=== PATIENT | female | born 1995 | race Caucasian/White ===

== ENCOUNTER → 2021-01-17 10:26 | Outpatient (CLI) | payer OTHER, SELFPAY ==
--- NOTE | 2021-01-17 10:30 | DI.US.S_ITS ---
PROCEDURE: US OB <= 14 WEEKS FETUS INDICATIONS: OB Dating OUTSIDE/PRIOR DATING DATA: Last menstrual period (LMP): Not available. LMP-based estimated date of delivery (BRET): Not available. First dating scan (date and location): 01/17/21. Estimated date of delivery (BRET) from first dating scan: 07/30/21. TECHNIQUE: Real-time scanning was performed of the fetus and maternal pelvic organs, with image documentation. Endovaginal scanning was also performed to better visualize the fetus and maternal ovaries. COMPARISON: None. FINDINGS: Embryo: Placenta appears anterior, heart rate is seen at the fetus measuring 144 beats per minute. Maternal cervical length is 5.3 cm. The BPD, head circumference and abdominal circumference measure 12 weeks 2 days, 12 weeks 3 days, and 12 weeks 0 days for gestational age. The com positive current gestational age is 12 weeks 2 days, +/-5 days. Measurement variability in dating: +/- 4 weeks by LMP, +/- 7 days by mean sac diameter (use before 6 weeks gestation if crown-rump length not able to be measured), +/- 5 days by crown-rump length (up to 8 weeks 6 days gestation), +/- 7 days by crown-rump length (up to 13 weeks 6 days gestation). Maternal organs: Ovaries appear normal considering gestational status. . IMPRESSION: 12 week 2 day gestational age, delivery date is projected to be centered on 07/30/21. Follow-up anatomic survey at approximately 20 weeks gestation is recommended. Dictated by: Kendrick Calzada M.D. on 01/17/2021 at 14:02 Approved by: Kendirck Calzada M.D. on 01/17/2021 at 14:04
[2021-01-17 12:18] LABS: Add Manual Diff / Slide Review NO; Basophils Absolute Auto 0 /uL (0-100); Basophils Percent Auto 0.3 % (0-2); Eosinophils Absolute Auto 100 /uL (0-450); Eosinophils Percent Auto 0.4 % (2-4); Hematocrit 39.7 % (36-46); Hemoglobin 13.9 g/dL (12.0-16.0); Lymphocytes Absolute Auto 3200 /uL (1100-4500); Lymphocytes Percent Auto 22.4 % (25-40); Mean Corpuscular Hemoglobin 29.6 PG (26-34); Mean Corpuscular Volume 84.6 fL (80-100); Monocytes Absolute Auto 400 /uL (0-900); Neutrophils Absolute Auto 10500 /uL (1500-7000); Neutrophils Percent Auto 73.9 % (50-75); Platelet Count 246 X10^3/uL (150-400); Red Blood Cell Count 4.69 X10^6/uL (4.0-5.2); Red Cell Distribution Width 12.8 % (11.6-14.8); White Blood Cell Count 14.2 X10^3/uL (4.5-11.0)
[2021-01-17 12:49] LABS: Hepatitis B Surface Antigen NEGATIVE s/c (NEGATIVE); Rubella Antibody IgG 13.1 IU/mL (>15)
[2021-01-17 13:09] LABS: HIV 1 & 2 Ab/Ag 4th Gen Combo NEGATIVE (NEGATIVE); Hep C Virus Ab w/Reflex Quant NEGATIVE s/c (NEGATIVE)
[2021-01-18 06:35] LABS: RPR Screen Non Reactive (Non Reactive)
[2021-01-18 10:48] LABS: Varicella IgG Antibody 850 index (Immune >165)
== END ==
PROVIDERS: Referring Provider Specialist; Visit Provider Specialist
DX: Z34.81 Encounter for supervision of other normal pregnancy, first trimester (principal); Z3A.12 12 weeks gestation of pregnancy
CPT/HCPCS: 36415; 76801; 80055; 86787; 86803; 86850; 86900; 86901; 87389

== ENCOUNTER → 2021-02-09 12:05 | Outpatient (ROUT) | payer OTHER, SELFPAY ==
[2021-02-09 12:28] LABS: Appearance Urine UA Clear; Bilirubin Urine UA Negative (NEGATIVE); Color Urine UA YELLOW; Glucose Urine UA NEGATIVE (Negative); Ketones Urine UA 1+ (NEGATIVE); Leukocyte Esterase Urine UA NEGATIVE (NEGATIVE); Nitrite Urine UA NEGATIVE (Negative); Occult Blood Urine UA Negative (Negative); Protein Urine UA Negative (Negative); Specific Gravity Urine UA 1.025 (1.000-1.035); Urobilinogen Urine UA Normal E.U./dL (0.2); pH Urine UA 5.5 (4.5-8.0)
== END ==
PROVIDERS: Visit Provider Specialist
DX: Z34.81 Encounter for supervision of other normal pregnancy, first trimester (principal)
CPT/HCPCS: 81003; 87086

== ENCOUNTER → 2021-04-07 10:41 | Outpatient (CLI) | payer OTHER, MEDICAID, SELFPAY ==
--- NOTE | 2021-04-07 10:44 | DI.US.S_ITS ---
PROCEDURE: US OB >= 14 WEEKS FETUS INDICATIONS: 20 WEEK ANATOMY SCAN OUTSIDE/PRIOR DATING DATA: Last menstrual period (LMP): Not available. LMP-based estimated date of delivery (BRET): Not available . First dating scan (date and location): 01/17/21 . Estimated date of delivery (BRET) from first dating scan: 07/30/21 . TECHNIQUE: Real-time scanning was performed of the fetus, with image documentation and biometric measurements. Endovaginal scanning: Not needed COMPARISON: 01/17/21. FINDINGS: General: A single living intrauterine gestation is present. Presentation: Vertex. Placenta: Placental position is anterior , without previa. Amniotic fluid index: 14.8 cm, normal range is 5-24 cm. heart rate: 137 beats per minute. Maternal cervical canal: 5.4 cm long. Normal lower limit is 2.5 cm. biometrics: Biparietal diameter: 5.6 cm, 23 weeks 1 day Head circumference: 20.8 cm, 22 weeks 6 days Abdominal circumference: 19.0 cm, 23 weeks 4 days Femur length: 3.9 cm, 22 weeks 4 days Estimated gestational age from initial scan: 23 weeks 5 days Composite gestational age from present scan: 23 weeks 1 day Estimated weight and percentile: 571 g, 20th percentile. Measurement variability for biometric dating: +/- 7 days from 14 weeks to 15 weeks 6 days gestation, +/- 10 days from 16 weeks to 21 weeks 6 days gestation, +/- 2 weeks from 22 weeks to 27 weeks 6 days gestation, +/- 3 weeks for 28 weeks gestation or later. weight reference: 4500 g or EFW >90/95% is considered macrosomia or large for gestational age. EFW <10% is small for gestational age. EFW 5% or less is considered intra-uterine growth restriction. Anatomic survey: Neuro: Ventricles are non-dilated at less than 10 mm. Cisterna magna is normal at 3-11 mm. Cerebellum is normal in size and morphology. Nuchal skin fold: Normal at less than 6 mm between 14-21 weeks gestational age. Face: Nose and lips, facial profile are normal. Spine: No evidence for spina bifida. Heart: 4-chambered heart is present, with normal ventricular outflow tracts. Diaphragm: Diaphragm is intact. Stomach: Left-sided stomach is present. Kidneys: No hydronephrosis. Normal is less than 5 mm in 2nd trimester, less than 7 mm in 3rd trimester. Cord: 3-vessel cord has orthotopic insertion. Bladder: Normal in size. Extremities: All 4 extremities identified. IMPRESSION: Appropriate interval growth, no anomaly seen. The delivery date is projected to be centered on 07/30/21. Dictated by: Kendrick Calzada M.D. on 04/07/2021 at 12:22 Approved by: Kendrick Calzada M.D. on 04/07/2021 at 12:28
== END ==
PROVIDERS: Referring Provider Specialist; Visit Provider Specialist
DX: Z34.82 Encounter for supervision of other normal pregnancy, second trimester (principal); Z3A.19 19 weeks gestation of pregnancy
CPT/HCPCS: 76811

== ENCOUNTER → 2021-07-14 14:56 | Outpatient (CLI) | payer OTHER, MEDICAID, SELFPAY ==
[2021-07-15 14:48] LABS: Strep Grp B PCR NEG for Grp B Strep
== END ==
PROVIDERS: Visit Provider Specialist
DX: Z34.83 Encounter for supervision of other normal pregnancy, third trimester (principal); Z3A.36 36 weeks gestation of pregnancy
CPT/HCPCS: 87653

== ENCOUNTER 2021-08-03 06:56 | Inpatient (IN) | payer OTHER, MEDICAID, SELFPAY ==
[2021-08-03 07:52] LABS: Add Manual Diff / Slide Review NO; Basophils Absolute Auto 100 /uL (0-100); Basophils Percent Auto 0.5 % (0-2); Eosinophils Absolute Auto 100 /uL (0-450); Eosinophils Percent Auto 0.7 % (2-4); Hematocrit 35.2 % (36-46); Hemoglobin 11.6 g/dL (12.0-16.0); Lymphocytes Absolute Auto 2700 /uL (1100-4500); Lymphocytes Percent Auto 22.9 % (25-40); Mean Corpuscular Hemoglobin 27.6 PG (26-34); Mean Corpuscular Volume 83.7 fL (80-100); Monocytes Absolute Auto 700 /uL (0-900); Monocytes Percent Auto 5.6 % (3-14); Neutrophils Absolute Auto 8300 /uL (1500-7000); Neutrophils Percent Auto 70.3 % (50-75); Platelet Count 273 X10^3/uL (150-400); Red Blood Cell Count 4.21 X10^6/uL (4.0-5.2); Red Cell Distribution Width 15.9 % (11.6-14.8); White Blood Cell Count 11.7 X10^3/uL (4.5-11.0)
[2021-08-03] MEDS: OXYTOCIN PREMIX 30 UNIT/500 ML PLAST..BAG IV (07:57)
[2021-08-03] MEDS: LACTATED RINGERS 1,000 ML 100 ML IV ×2 (07:57→12:38)
--- NOTE | 2021-08-03 08:41 | P.HPOB_ITS ---
OB HPI Date/Time Date of admission: 08/03/21 Date Patient Seen: 08/03/21 Time Patient Seen: 08:00 History of Present Condition Chief complaint: induction of labor : 2 Para: 1 Estimated Date of Delivery: 08/05/21 Estimated Gestational Age (weeks): 39 Narrative: Criss Ovalles is a 25 year old female admitted for induction for distance from the hospital Indications Indication for induction OB: maternal distance History of Present care: good care, initiated at week # (14), number of visits (10) and pounds weight gain (45) Dating criteria: based on LMP only Ultrasounds: normal mid trimester US Obstetrical complications: none Medical complications: none Preadmission Labs Blood type: A (+) positive -: Antibody screen: negative, GBS status: negative, HBsAG: negative, HIV: negative and RPR/VDLR: negative -: Chlamydia screen: not detected and Gonorrhea screen: not detected -: Rubella: not immune and Varicella: immune HCAB: negative 1 hr GTT: 106 Prior (ies) History: 08/07/1939 week gestation 7 lb 2 oz vaginal delivery Evaluation Evaluation Baseline heart rate: 130 Variability: Moderate (11-25) monitor accelerations: Present Monitor Decelerations: Absent Contraction Frequency (minutes): 6 Uterine Contraction Intensity: Mild Category of Tracing: Reactive Status: Category l Dilation (cm): 1 Effacement (%): 50 station: -1 Position of cervix: anterior Consistency: soft PFSH Medical History (Updated 06/21/21 @ 10:24 by Betty Ramsey MD) Migraines (~2009) Surgical History (Updated 01/13/21 @ 14:35 by Tiffanie Gregg RN) History of placement of ear tubes (~1999) Family History (Updated 01/13/21 @ 14:43 by Tiffanie Gregg RN) Mother Benign ovarian tumor H/O total hysterectomy with bilateral salpingo-oophorectomy (BSO) Father Hyperlipidemia WPW syndrome Grandmother Back pain Grandfather Cardiac arrhythmia Grandmother Migraines Grandfather Arthritis Social History marital status: number of children: 1 household members: spouse and children (17 mo old daughter) lives independently: Yes caregiver/support person: No housing: house pets and animals: Yes (1 dog, pretty mellow, should be OK.) education level: college (2 years [employer]: [employer]) 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 ) current occupational exposures/hazards: No special yeimi needs: No seatbelt use: always do you feel safe at home: Yes Smoking Status: Never smoker second hand exposure: No alcohol intake: former (Pre-: Occasional.) substance use type: marijuana (Has not smoked in a long time.) during the past year weight has: remained stable well-balanced diet: about half the time daily servings fruits/ve-4 caffeine: Yes (Occasional only. ) Type(s) of exercise: walking frequency: daily (At least twice a day.) duration: 45-60 minutes/day Meds Home Medications and Allergies Home Medications Medication Instructions Recorded Confirmed Type calcium carbonate 300 mg (750 mg) 300 mg PO BID 01/13/21 08/01/21 History chewable tablet (Tums E-X) prenat.vits,aleks,oud-gifu-vzeua 1 tab PO DAILY 01/13/21 08/01/21 History pyridoxine (vitamin B6) 50 mg 50 mg PO BID 01/13/21 08/01/21 History tablet hydrocortisone 2.5 % topical cream 1 applic NE QD-BID PRN #30 g 06/02/21 08/01/21 Rx with perineal applicator (Anusol-HC) omeprazole 40 mg capsule,delayed 40 mg PO DAILY #30 cap 07/14/21 08/01/21 Rx release Allergies Allergy/AdvReac Type Severity Reaction Status Date / Time No Known Drug Allergies Allergy Verified 01/13/21 14:05 Review of Systems Review of Systems Narrative: Patient denies headaches, scotomata, epigastric pain. Good movement. No leakage of fluid. No concerns OB Exam Narrative Exam Narrative: Blood pressure 120/71, pulse 100, temperature 36.1? HEENT exam within normal limits. Lungs are clear to auscultation percussion. Heart is regular rate and rhythm no S3-S4 or murmurs. Abdomen is gravid. Fetus is vertex. Extremities without edema and nontender. Objective Labs Result Diagrams: 08/03/21 07:30 Labs: Laboratory Results - last 24 hr 08/03/21 07:30 WBC 11.7 H RBC 4.21 Hgb 11.6 L Hct 35.2 L MCV 83.7 MCH 27.6 MCHC 33.0 RDW 15.9 H Plt Count 273 Neut % (Auto) 70.3 Lymph % (Auto) 22.9 L [place] % (Auto) 5.6 Eos % (Auto) 0.7 L Baso % (Auto) 0.5 Neut # (Auto) 8300 H Lymph # (Auto) 2700 [place] # (Auto) 700 Eos # (Auto) 100 Baso # (Auto) 100 Assessment and Plan Assessment and Plan Assessment and Plan narrative: 39 week gestation admitted for Pitocin induction for distance from the hospital. Anticipate vaginal delivery. Time Spent with Patient Total time spent with greater than 50% in coordination of care (as documented) at patient's floor/unit and/or counseling patient:: less than 15 minutes
[2021-08-03 10:39] LABS: COVID19 - ADMIT (NP swab/PCR) Negative (Negative)
[2021-08-03] MEDS: fentaNYL 100 MCG/2 ML INJ (12:00)
[2021-08-03] MEDS: FENT 2MCG/ML BUPIV 0.125% EPI 200 MCG/100 ML PLAST..BAG 20 MCG EPIDURAL (12:00)
[2021-08-03] MEDS: fentaNYL 100 MCG/2 ML INJ IV (15:25)
--- NOTE | 2021-08-03 18:04 | PM.OBPRVD ---
Labor & Delivery Delivery date: 08/03/21 Intrapartal Events: None Cervical ripening method: none Induction method: per pitocin protocol Delivery monitor: external FHT and external uterine Route of delivery: L&D Laceration Description: None Estimated blood loss (mL): 100 Anesthesia Type: Epidural Narrative: Patient arrived on Labor and delivery for Pitocin induction for distance from the hospital. Pitocin was begun and the patient received an epidural catheter for pain control. She had spontaneous rupture of membranes clear fluid. The fetus had periodic variable decelerations but the variability remained reactive. Category 1 to 2 throughout labor. The baby delivered spontaneously, over an intact perineum. There was a double nuchal cord that was released. The viable male infant was placed on maternal abdomen. After the cord stopped pulsating the cord was clamped, cut, and cord bloods obtained. The placenta delivered spontaneously, intact, with 3 vessels. There were no cervical, vaginal, or perineal tears. Both infant mother doing well. [place] Baby 1: Infant gender: Male Presentation: vertex Position: Right Occiput Anterior Placenta delivery description: Spontaneous Cord Vessel Description: 3 Vessels and Nuchal Cord (X2) score (1 min): 9 score (5 min): 9 weight: 7 lb 14 oz Plan for aftercare: Routine care
[2021-08-03] MEDS: IBUPROFEN 600 MG TABLET PO (19:36)
[2021-08-03] MEDS: ACETAMINOPHEN 325 MG TABLET 650 MG PO (21:55)
[2021-08-04] MEDS: ACETAMINOPHEN 325 MG TABLET 650 MG PO ×2 (04:00→09:54)
[2021-08-04] MEDS: IBUPROFEN 600 MG TABLET PO ×2 (04:01→09:53)
[2021-08-04] MEDS: LANOLIN OINT 7 GM 1 APPLIC TOP (04:01)
--- NOTE | 2021-08-04 07:24 | PM.OBDS.1 ---
Discharge Providers Provider Date of admission: 08/03/21 06:56 Discharge Date: 08/04/21 Consults: 08/03/21 07:09 Consult to Anesthesiology Urgent Comment: Consulting Provider: Anesthesiologist Reason for consultation: Epidural Has provider been notified: No 08/04/21 16:55 Consult to Software Solutions Architect Routine Comment: Discharge provider: Betty Ramsey MD Summary Hospital Course Date Patient Seen: 08/04/21 Time Patient Seen: 07:24 Diagnoses: Spontaneous vaginal delivery Hospital Course: Patient was admitted to the hospital for induction for distance from the hospital. She was started on PitocinShe received an epidural catheter for pain control. She had a spontaneous vaginal delivery of a viable male . She and the baby are doing well . She is breast-feeding. She is urinating well. She is ambulatory. Her pain is under control. Peripartum Data Infant Delivery Method: Natural Vaginal Laceration Description: None Procedures: Pitocin induction, epidural catheter, spontaneous vaginal delivery complications: none 1: Gender: Male Disposition of : home Discharge Diagnosis (1) Vaginal delivery: Status: Acute Status at Discharge Cognitive/behavioral status at discharge: oriented Functional status at discharge: independent ambulation Overall status at discharge: patient is progressing back to baseline Time Spent with Patient Time attestation: Total time spent providing and/or coordinating discharge services: Time spent: Less than 30 minutes Objective Labs Result Diagrams: 08/03/21 07:30 Labs: Laboratory Results - last 24 hr 08/03/21 08/03/21 08/03/21 07:30 07:30 07:35 WBC 11.7 H RBC 4.21 Hgb 11.6 L Hct 35.2 L MCV 83.7 MCH 27.6 MCHC 33.0 RDW 15.9 H Plt Count 273 Neut % (Auto) 70.3 Lymph % (Auto) 22.9 L [place] % (Auto) 5.6 Eos % (Auto) 0.7 L Baso % (Auto) 0.5 Neut # (Auto) 8300 H Lymph # (Auto) 2700 [place] # (Auto) 700 Eos # (Auto) 100 Baso # (Auto) 100 SARS-CoV-2 (PCR) Negative Blood Type A Positive Antibody Screen Negative Exam Vital Signs (past 8 hours): BP 124/72 P98 T 98.4 Narrative Exam Narrative: Abdomen is soft, nontender. Uterus is firm, at U, nontender. Moderate lochia. Extremities without edema and nontender. Patient is Rh positive. She is rubella nonimmune so will receive the rubella vaccine prior to discharge. She received Tdap in the 3rd trimester. Discharge Plan Discharge Plan Patient Disposition: Home Discharge orders & Medications Prescriptions: New ibuprofen 600 mg Tablet 600 mg PO Q6HR PRN (Reason: Pain, Mild (1-3)) Qty: 30 0RF Continued hydrocortisone [Anusol-HC] 2.5 % cream with perineal applicator 1 applic NV QD-BID PRN (Reason: hemorrhoids) Qty: 30 0RF omeprazole 40 mg capsule,delayed release(DR/EC) 40 mg PO DAILY Qty: 30 0RF prenat.vits,aleks,juz-rqqc-nhrdo Tablet 1 tab PO DAILY 0RF pyridoxine (vitamin B6) 50 mg tablet 50 mg PO BID 0RF calcium carbonate [Tums E-X] 300 mg (750 mg) tablet,chewable 300 mg PO BID 0RF Follow up/Referrals: Betty Ramsey MD [Physician] - 09/06/21 (Clinic in [place]) Diet/Activity/Treatments Diet: Regular Activity: Nothing in vagina for 6 weeks Skin/Wound/Dressing Care Report to your healthcare provider any signs of infection, such as:: chills, fever
[2021-08-04 09:10] VITALS: BP 116/73; PULSE 84; RESP 16; TEMP 36.1
[2021-08-04] MEDS: DOCUSATE 100 MG CAPSULE PO (09:54)
[2021-08-04] MEDS: MEASLES,MUMPS,RUBELLA VACC/PF 0.5 ML VIAL SUBCUT (11:09)
== END 2021-08-04 11:30 | disposition home or self-care (01) | DRG 807 ==
PROVIDERS: Admitting Provider Specialist; Referring Provider Specialist; Visit Provider Specialist
DX: O76 Abnormality in fetal heart rate and rhythm complicating labor and delivery (principal); Z37.0 Single live birth; O69.81X0 Labor and delivery complicated by cord around neck, without compression, not applicable or unspecified; Z3A.39 39 weeks gestation of pregnancy
CPT/HCPCS: 01967; 36415; 59050; 59400; 85025; 86850; 86900; 86901; 87635; C9803; G0379; J2590; J3010